=== PATIENT | female | born 1995 | race Caucasian/White ===

== ENCOUNTER 2019-01-05 21:31 | Emergency (ER) | payer MEDICAID ==
[~2019-01-05] VITALS: Ht 165.1 cm; Wt 77.3 kg
[2019-01-05 21:36] VITALS: Ht 165.1 cm; Wt 77.3 kg
[2019-01-05] MEDS ORDERED: BUPROPION HCL75 MG PO (21:38)
[2019-01-05] MEDS ORDERED: BUSPAR10 MG PO (21:39)
[2019-01-05] MEDS ORDERED: TORADOL10 MG PO (22:29)
[2019-01-05 22:43] VITALS: BP 132/76
== END 2019-01-05 22:44 | disposition home or self-care (01) ==
LOC: D.ER 21:31
DX: S50.12XA Contusion of left forearm, initial encounter (principal); X58.XXXA Exposure to other specified factors, initial encounter; Y99.0 Civilian activity done for income or pay; S63.502A Unspecified sprain of left wrist, initial encounter; F41.8 Other specified anxiety disorders; Z87.81 Personal history of (healed) traumatic fracture

== ENCOUNTER → 2019-02-11 07:41 | Outpatient (CLI) | payer MEDICAID ==
[2019-01-05 21:36] VITALS: BMI 28.3
[~2019-02-11 07:41] MED LIST: BUPROPION HCL75 MG PO; BUSPAR10 MG PO; TORADOL10 MG PO
== END | disposition home or self-care (01) ==
LOC: D.US 02-10 09:00
PROVIDERS: ATTEND Family Medicine
DX: N92.6 Irregular menstruation, unspecified (principal)

== ENCOUNTER 2019-10-25 15:41 | Emergency (ER) | payer OTHER ==
[~2019-10-25] VITALS: Ht 165.1 cm; Wt 81.8 kg
[2019-10-25 15:45] VITALS: Ht 165.1 cm; Wt 81.8 kg
[2019-10-25] MEDS ORDERED: NAPROSYN500 MG PO (18:40)
[2019-10-25 19:16] VITALS: BP 118/79
== END 2019-10-25 19:16 | disposition home or self-care (01) ==
LOC: D.ER 15:41
DX: M25.552 Pain in left hip (principal)